=== PATIENT | male | born 1940 | race Caucasian/White ===

== ENCOUNTER 2018-11-07 09:29 | Day surgery (SDC) | payer MEDICARE ==
[~2018-11-07] VITALS: Ht 175.3 cm; Wt 76.0 kg
[~2018-11-07 09:29] MED LIST: ASPI81EC PO; CALCAVITD PO; FLAXSEED OIL1000 MG; MULTI VITAMIN1 EACH PO; VITAMIN D33000 UNIT PO; VITAMIN D34000 UNIT PO
--- NOTE | 2018-11-07 11:20 | NUR ---
11/07/18 1120 Cynthia AguilarJosy CHIN LIFTS NEEDED THROUGHOUT PROCEDURE.
== END 2018-11-07 12:01 | disposition home or self-care (01) ==
LOC: ORSCSDS 09:29
PROVIDERS: Internal Medicine Gastroenterology
PROC: 0DJD8ZZ Inspection of Lower Intestinal Tract, Via Natural or Artificial Opening Endoscopic (ICD-10-PCS; principal; 2018-11-07 11:00)
DX: Z12.11 Encounter for screening for malignant neoplasm of colon (principal); K64.8 Other hemorrhoids; Z86.010 Personal history of colon polyps; Z80.0 Family history of malignant neoplasm of digestive organs; E78.5 Hyperlipidemia, unspecified; Z79.82 Long term (current) use of aspirin
CPT/HCPCS: J2704; J7120

== ENCOUNTER → 2025-01-21 | Outpatient (CLI) | payer OTHER ==
[2025-01-21 15:58] LABS: Campylobacter Sp Not Detected (NOT DETECT); E. Coli O157 Not Detected (NOT DETECT); Enteroaggregative E. coli-EAEC Not Detected (NOT DETECT); Enteropathogenic E. coli-EPEC Not Detected (NOT DETECT); Enterotoxigenic E. coli-ETEC Not Detected (NOT DETECT); Salmonella Sp Not Detected (NOT DETECT); Shiga Toxin-prod E. coli-STEC Not Detected (NOT DETECT); Shigella/Enteroin E. coli-EIEC Not Detected (NOT DETECT); Vibrio Sp Not Detected (NOT DETECT)
[2025-01-23 16:08] LABS: CALPROTECTIN,FECAL 26 ug/g (<=49)
== END ==
LOC: LAB 03:30 → LAB SHORT 03:30 → EDSTATUS 01-18 09:35 → LAB FUT 01-18 09:35
PROVIDERS: Internal Medicine
DX: I10 Essential (primary) hypertension (principal); R73.9 Hyperglycemia, unspecified; E78.5 Hyperlipidemia, unspecified; R19.7 Diarrhea, unspecified
CPT/HCPCS: 83993; 87507